=== PATIENT | male | born 1995 | race Caucasian/White ===

== ENCOUNTER 2016-11-03 15:36 | Emergency (ER) | payer SELFPAY ==
[~2016-11-03] VITALS: Ht 172.7 cm; Wt 59.0 kg
[2016-11-03] MEDS ORDERED: LORazepam INJ 2 MG/ML (ATIVAN) VIAL ONE (15:41)
[2016-11-03] MEDS ORDERED: NS IV 1000 ML 1,000 ML ONE (15:41)
[2016-11-03] MEDS ORDERED: NS IV 1000 ML 1,000 ML IV ONE ×2 (15:43→16:47)
[2016-11-03] MEDS ORDERED: LORazepam INJ 2 MG/ML (ATIVAN) VIAL IVP ONE (15:45)
[2016-11-03 15:57] LABS: BASOPHILS % (AUTO) 0 % (0-10); EOSINOPHILS # (AUTO) 0.1 10^3/uL (0.0-0.3); EOSINOPHILS % (AUTO) 1 % (0-10); LYMPHOCYTES # (AUTO) 1.5 X 10^3 (1.0-4.0); LYMPHOCYTES % (AUTO) 14 % (12-44); MEAN CORPUSCULAR HEMOGLOBIN 31 PG (25-34); MEAN CORPUSCULAR HGB CONC 37 G/DL (32-36); MEAN CORPUSCULAR VOLUME 85 FL (80-99); MEAN PLATELET VOLUME 11.4 FL (7.4-10.4); MONOCYTES # (AUTO) 0.9 X 10^3 (0.0-1.0); MONOCYTES % (AUTO) 8 % (0-12); NEUTROPHILS # (AUTO) 8.6 X 10^3 (1.8-7.8); NEUTROPHILS % (AUTO) 78 % (42-75); PLATELET COUNT 212 10^3/uL (130-400); RED BLOOD COUNT 5.31 10^6/uL (4.35-5.85); RED CELL DISTRIBUTION WIDTH 12.4 % (10.0-14.5)
[2016-11-03] MEDS ORDERED: ONDANSETRON 4 MG/2 ML (SDV) Z0FRAN IVP ONE (16:00)
--- NOTE | 2016-11-03 16:05 | Diagnostic Imaging Report ---
INDICATION: Headache, fever. EXAMINATION: Portable erect AP chest at 3:49 p.m. COMPARISON: There are no prior studies available for comparison. FINDINGS: The heart size is within normal limits. The lungs are clear. There is no evidence for pneumonia or for a pleural effusion. There is no sign of a pneumothorax. The mediastinum is not widened. The osseous structures are intact. IMPRESSION: There is no evidence for an acute cardiopulmonary abnormality. Dictated by: Dictated on workstation # [id number]
[2016-11-03 16:15] LABS: ALANINE AMINOTRANSFERASE 20 U/L (0-55); ALBUMIN 4.6 G/DL (3.2-4.5); ANION GAP 11 MMOL/L (5-14); ASPARTATE AMINO TRANSFERASE 17 U/L (5-34); BILIRUBIN,TOTAL 0.9 MG/DL (0.1-1.0); BLOOD UREA NITROGEN 11 MG/DL (7-18); BUN/CREATININE RATIO 13; CALCIUM 9.6 MG/DL (8.5-10.1); CARBON DIOXIDE 22 MMOL/L (21-32); CHLORIDE 107 MMOL/L (98-107); CREATININE SERUM 0.86 MG/DL (0.60-1.30); GFR ESTIMATED > 60; GLUCOSE 115 MG/DL (70-105); MAGNESIUM 1.8 MG/DL (1.8-2.4); POTASSIUM 3.9 MMOL/L (3.6-5.0); SODIUM 140 MMOL/L (135-145); TOTAL PROTEIN 6.7 G/DL (6.4-8.2)
[2016-11-03 16:20] LABS: ALCOHOL < 10 MG/DL (<10)
--- NOTE | 2016-11-03 16:23 | ED General ---
General Chief Complaint: Cough/Cold/Flu Symptoms Stated Complaint: HEADACHE/N/V/FEVER Nursing Triage Note: to ED 5 by [facility] with reports of "not feeling well." Patient will not verbalize any major complaints, but reports that he has abdominal pain, nausea, congestion, cough, headache, and other general illness for the past hour. 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 Nursing Sepsis Screen: No Definite Risk Source of Information: Patient, EMS Exam Limitations: No Limitations History of Present Illness Time Seen by Provider: 15:38 Initial Comments This 21-year-old man presents to the emergency room via EMS after having headache, nausea and vomiting, and erratic behavior at home. EMS reported he was stumbling around the home. EMS gave him Zofran 4 mg by IV. He reports residual nausea. He also has some generalized abdominal pain. He reports fever at home but is afebrile for us on assessment. He denies any drug or alcohol use. Patient appears to be hyperventilating and is having some contractures of his hands as a result. Allergies and Home Medications Allergies Coded Allergies: No Known Drug Allergies (Unverified , 11/03/16) Home Medications No Active Prescriptions or Reported Meds Constitutional: see HPI EENTM: no symptoms reported Respiratory: see HPI Cardiovascular: no symptoms reported Gastrointestinal: see HPI Genitourinary: no symptoms reported Musculoskeletal: no symptoms reported Skin: no symptoms reported Psychiatric/Neurological: See HPI Past Nbcuwfl-Qnfquj-Tdfexe Hx Patient Social History Alcohol Use: Denies Use Recreational Drug Use: Yes Drug of Choice: Marijuana Smoking Status: Current Everyday Smoker 2nd Hand Smoke Exposure: Yes Recent Foreign Travel: No Contact w/Someone Who Travel: No Recent Infectious Disease Expo: No Recent Hopitalizations: No Immunizations Up To Date Tetanus Booster (TDap): Unknown Seasonal Allergies Seasonal Allergies: Yes Surgeries HX Surgeries: No Respiratory Hx Respiratory Disorders: No Cardiovascular Hx Cardiac Disorders: No Neurological Hx Neurological Disorders: Yes Neurological Disorders: Seizure Disorder Genitourinary Hx Genitourinary Disorders: No Gastrointestinal Hx Gastrointestinal Disorders: No Musculoskeletal Hx Musculoskeletal Disorders: No Endocrine Hx Endocrine Disorders: No HEENT HX ENT Disorders: No Cancer Hx Cancer: No Psychosocial Hx Psychiatric Problems: No Physical Exam Vital Signs Vital Sign - Last 12Hours 11/03/16 15:40 Temp 98.5 Pulse 63 Resp 26 B/P 107/62 Pulse Ox 98 O2 Delivery Room Air Capillary Refill : Less Than 3 Seconds General Appearance: WD/WN Mild Distress Other (hyperventilating) HEENT: PERRL/EOMI Normal ENT Inspection Pharynx Normal Neck: Normal Inspection Respiratory: Lungs Clear Normal Breath Sounds No Accessory Muscle Use No Respiratory Distress Cardiovascular: Regular Rate, Rhythm No Edema No Murmur Gastrointestinal: Normal Bowel Sounds Soft Tenderness (generalized tenderness to palpation, mild) Extremity: Normal Inspection No Pedal Edema Other (contractures of the fingers with hyperventilation) Neurologic/Psychiatric: Alert Oriented x3 No Motor/Sensory Deficits Normal 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30 MG/DL Eosinophils # (Auto) 0.1 0.0-0.3 10^3/uL Eosinophils (%) (Auto) 1 0-10 % Estimat Glomerular Filtration Rate > 60 Glucose Level 115 H 70-105 MG/DL Hematocrit 45 40-54 % Hemoglobin 16.6 13.3-17.7 G/DL Lipase 22 8-78 U/L Lymphocytes # (Auto) 1.5 1.0-4.0 X 10^3 Lymphocytes (%) (Auto) 14 12-44 % Magnesium Level 1.8 1.8-2.4 MG/DL Mean Corpuscular Hemoglobin 31 25-34 PG Mean Corpuscular Hemoglobin Concent 37 H 32-36 G/DL Mean Corpuscular Volume 85 80-99 FL Mean Platelet Volume 11.4 H 7.4-10.4 FL Monocytes # (Auto) 0.9 0.0-1.0 X 10^3 Monocytes (%) (Auto) 8 0-12 % Neutrophils # (Auto) 8.6 H 1.8-7.8 X 10^3 Neutrophils (%) (Auto) 78 H 42-75 % Platelet Count 212 130-400 10^3/uL Potassium Level 3.9 3.6-5.0 MMOL/L Red Blood Count 5.31 4.35-5.85 10^6/uL Red Cell Distribution Width 12.4 10.0-14.5 % Serum Alcohol < 10 <10 MG/DL Sodium Level 140 135-145 MMOL/L TSH Mathews Testing 0.72 0.35-4.94 UIU/ML Total Bilirubin 0.9 0.1-1.0 MG/DL Total Protein 6.7 6.4-8.2 G/DL White Blood Count 11.0 4.3-11.0 10^3/uL Ur Tricyclic Antidepressants Screen NEGATIVE NEGATIVE Urine Amorphous Sediment FEW RACHAEL PHOSPHATE H /LPF Urine Amphetamines Screen NEGATIVE NEGATIVE Urine Bacteria NONE /HPF Urine Barbiturates Screen NEGATIVE NEGATIVE Urine Benzodiazepines Screen POSITIVE H NEGATIVE Urine Bilirubin NEGATIVE NEGATIVE Urine Cannabinoids Screen POSITIVE H NEGATIVE Urine Casts NONE /LPF Urine Clarity SLIGHTLY CLOUDY Urine Cocaine Screen NEGATIVE NEGATIVE Urine Color YELLOW Urine Crystals PRESENT H /LPF Urine Culture Indicated NO Urine Glucose (UA) NEGATIVE NEGATIVE Urine Ketones 3+ H NEGATIVE Urine Leukocyte Esterase 1+ H NEGATIVE Urine Methadone Screen NEGATIVE NEGATIVE Urine Methamphetamines Screen NEGATIVE NEGATIVE Urine Mucus SMALL H /LPF Urine Nitrite NEGATIVE NEGATIVE Urine Opiates Screen NEGATIVE NEGATIVE Urine Oxycodone Screen NEGATIVE NEGATIVE Urine Phencyclidine Screen NEGATIVE NEGATIVE Urine Propoxyphene Screen NEGATIVE NEGATIVE Urine Protein 2+ H NEGATIVE Urine RBC NONE /HPF Urine RBC (Auto) NEGATIVE NEGATIVE Urine Specific [place] 1.015 L 1.016-1.022 Urine Urobilinogen 1 NORMAL MG/DL Urine WBC 0-2 /HPF Urine pH 8 5-9 Micro Results Microbiology 11/03/16 Influenza Types A,B Antigen (MALENA) - Final, Complete My Orders Orders-GAYLE DICKINSON MD Ns Iv 1000 Ml (Sodium Chloride 0.9%) (11/03/16 15:41) Lorazepam Injection (Ativan Injection) (11/03/16 15:41) Lorazepam Injection (Ativan Injection) (11/03/16 15:45) Saline Lock/Iv-Start (11/03/16 15:43) Ns Iv 1000 Ml (Sodium Chloride 0.9%) (11/03/16 15:43) Alcohol (11/03/16 15:45) Cbc With Automated Diff (11/03/16 15:45) Comprehensive Metabolic Panel (11/03/16 15:45) Drug Screen Stat (Urine) (11/03/16 15:45) Magnesium (11/03/16 15:45) Thyroid Analyzer (11/03/16 15:45) Ua Culture If Indicated (11/03/16 15:45) Chest 1 View, Ap/Pa Only (11/03/16 15:45) Ondansetron Injection (Zofran Injectio (11/03/16 16:00) Influenza A And B Antigens (11/03/16 16:23) Lipase (11/03/16 16:46) Promethazine Injection (Phenergan Injec (11/03/16 16:45) Promethazine Injection (Phenergan Injec (11/03/16 17:00) Saline Lock/Iv-Start (11/03/16 16:47) Ns Iv 1000 Ml (Sodium Chloride 0.9%) (11/03/16 16:47) Rx-Ondansetron Po (Rx-Zofran Po) (11/03/16 18:31) Medications Given in ED Current Medications Medications Dose Ordered Sig/Minh Route Start Time Stop Time Status Last Admin Dose Admin Lorazepam 0.5 mg 0.5 mg ONCE ONCE IVP 11/03/16 15:45 11/03/16 15:46 DC 11/03/16 15:44 0.5 MG Ondansetron HCl 4 mg ONCE ONCE IVP 11/03/16 16:00 11/03/16 16:01 DC 11/03/16 15:57 4 MG Promethazine HCl 12.5 mg 12.5 mg ONCE ONCE IVP 11/03/16 17:00 11/03/16 17:01 DC 11/03/16 16:52 12.5 MG Sodium Chloride 1,000 ml @ 0 mls/hr Q0M ONCE IV 11/03/16 15:43 11/03/16 15:45 DC 11/03/16 15:44 0 MLS/HR Sodium Chloride 1,000 ml @ 0 mls/hr Q0M ONCE IV 11/03/16 16:47 11/03/16 16:48 DC 11/03/16 16:51 0 MLS/HR Vital Signs/I&O Vital Sign - Last 12Hours 11/03/16 11/03/16 15:40 15:40 Temp 98.5 Pulse 63 Resp 26 B/P 107/62 Pulse Ox 98 O2 Delivery Room Air Room Air Blood Pressure Mean: 77 Progress Note : Progress Note Patient was given a liter of IV fluids along with an additional 4 mg of Zofran. He was given Ativan 0.5 mg because of the hyperventilation. He still had residual nausea and reportedly could not urinate. A second liter of IV fluids was ordered along with Phenergan 12.5 mg. This resolved his nausea and vomiting but he still reported he could not urinate. A straight catheter was used to drain his bladder and we retrieved 700 mL of urine. Urine drug screen tested positive for marijuana. He admits to using marijuana 2 days ago. Patient's response to staff and stimuli was dependent on his mood. Patient was ultimately dismissed home with a take-home packet of Zofran. Diagnostic Imaging Diagonstic Imaging: Xray Plain Films/CT/US/NM/MRI: chest Comments Chest x-ray viewed by me and report reviewed. See report below: NAME: PAL TILLEY [facility] REC#: [id number] PT STATUS: REG ER : 1995 PHYSICIAN: GAYLE DICKINSON MD ADMIT DATE: 11/03/16/ER Draft Date of Exam:11/03/16 CHEST 1 VIEW, AP/PA ONLY INDICATION: Headache, fever. EXAMINATION: Portable erect AP chest at 3:49 p.m. COMPARISON: There are no prior studies available for comparison. FINDINGS: The heart size is within normal limits. The lungs are clear. There is no evidence for pneumonia or for a pleural effusion. There is no sign of a pneumothorax. The mediastinum is not widened. The osseous structures are intact. IMPRESSION: There is no evidence for an acute cardiopulmonary abnormality. Dictated on workstation # [id number] Dict: 11/03/16 1559 Trans: 11/03/16 1604 [facility] [id number] Interpreted by: AYE WILLIS MD Departure Impression Impression: Primary Impression: Nausea and vomiting Qualified Code: R11.2 - Nausea with vomiting, unspecified Additional Impressions: Urinary retention Generalized abdominal pain Marijuana abuse Hyperventilation Disposition: 01 HOME, SELF-CARE Condition: Improved Departure-Patient Inst. Decision time for Depature: 18:20 Referrals: NO,LOCAL PHYSICIAN (PCP/Family) Primary Care Physician Patient Instructions: Acute Abdomen (Belly Pain), Nausea and Vomiting, Adult Add. Discharge Instructions: Clear liquid diet only until nausea resolves. Then gradually advance your diet with small quantities of bland food as tolerated. Use the Zofran (ondansetron) provided in the ER. Dissolve Zofran under the tongue every 4 hours as needed for nausea. Avoid use of marijuana or marijuana exposure in the future as it can be a major trigger for nausea, vomiting, and abdominal pain. Return to care if symptoms worsen. All discharge instructions reviewed with patient and/or family. Voiced understanding. Scripts No Active Prescriptions or Reported Meds GAYLE DICKINSON MD Nov 03, 2016 16:23
[2016-11-03] MEDS ORDERED: PROMETHAZINE INJ 25 MG/ML (PHENERGAN) AMP ONE (16:45)
[2016-11-03] MEDS ORDERED: PROMETHAZINE INJ 25 MG/ML (PHENERGAN) AMP IVP ONE (17:00)
[2016-11-03 18:06] LABS: BILIRUBIN,URINE NEGATIVE (NEGATIVE); KETONES,URINE 3+ (NEGATIVE); LEUKOCYTE ESTERASE ,URINE 1+ (NEGATIVE); NITRITE,URINE NEGATIVE (NEGATIVE); PH,URINE 8 (5-9); PROTEIN,URINE 2+ (NEGATIVE); UROBILINOGEN,URINE 1 MG/DL (NORMAL)
[2016-11-03 18:12] LABS: WBC,URINE 0-2 /HPF
[2016-11-03] MEDS ORDERED: RX-ONDANSETRON 4 MG ODT (ZOFRAN) PPK #4 SL STA (18:31)
[2016-11-03 18:54] VITALS: BP 112/60
== END 2016-11-03 18:54 | disposition home or self-care (01) ==
LOC: ER 15:38
DX: R11.2 Nausea with vomiting, unspecified (principal); R33.9 Retention of urine, unspecified; R10.84 Generalized abdominal pain; F12.10 Cannabis abuse, uncomplicated; R06.4 Hyperventilation; F17.210 Nicotine dependence, cigarettes, uncomplicated
CPT/HCPCS: 36415; 51701; 71010; 80053; 80306; 80320; 81000; 83690; 83735; 84443; 85025; 87804; 96365; 96375

== ENCOUNTER 2017-05-28 20:30 | Emergency (ER) | payer SELFPAY ==
[~2017-05-28] VITALS: Ht 172.7 cm; Wt 59.0 kg
[2017-05-28] MEDS ORDERED: KETOROLAC 30 MG/ML VIAL IVP ONE (20:45)
--- NOTE | 2017-05-28 20:47 | ED Chest Pain ---
General Stated Complaint: RT SIDED CHEST PAIN,COUGH,SOA Source: patient Exam Limitations: no limitations History of Present Illness Time seen by provider: 20:46 Initial Comments 1 home to ER with a cough that is been present for one week. This is nonproductive. No fevers or chills. He has a sharp right-sided chest pain just below his nipple. He is also short of breath. This pain has been present all throughout the day today and it was present when he awakened at 8 a.m. this morning. He is tall and thin. 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 Allergies and Home Medications Allergies Coded Allergies: Penicillins (Verified Allergy, Unknown, 05/28/17) Home Medications No Active Prescriptions or Reported Meds Review of Systems Constitutional: see HPI EENTM: No Symptoms Reported Respiratory: See HPI, Cough, Shortness of Air Cardiovascular: See HPI, Chest Pain Gastrointestinal: No Symptoms Reported Genitourinary: No Symptoms Reported Musculoskeletal: no symptoms reported Skin: no symptoms reported Psychiatric/Neurological: No Symptoms Reported Endocrine: No Symptoms Reported Hematologic/Lymphatic: No Symptoms Reported Past Ipqkcxk-Vvxfnb-Hrrljs Hx Patient Social History Drug of Choice: Marijuana 2nd Hand Smoke Exposure: Yes Recent Foreign Travel: No Contact w/Someone Who Travel: No Recent Hopitalizations: No Immunizations Up To Date Tetanus Booster (TDap): Unknown Seasonal Allergies Seasonal Allergies: Yes Neurological Neurological Disorders: Seizure Disorder Physical Exam Vital Signs Capillary Refill : General Appearance: No Apparent Distress, WD/WN HEENT: PERRL/EOMI, TMs Normal Neck: Full Range of Motion, Normal Inspection Respiratory: Normal Breath Sounds, No Accessory Muscle Use, No Respiratory Distress Cardiovascular: Regular Rate, Rhythm, Normal Peripheral Pulses Gastrointestinal: Normal Bowel Sounds, Non Tender, Soft Extremity: Normal Capillary Refill, Normal Inspection Neurologic/Psychiatric: Alert, Oriented x3, No Motor/Sensory Deficits Skin: Normal Color, Warm/Dry Progress/Results/Core Measures Results/Orders Lab Results Laboratory Tests Test 05/28/17 20:45 Range/Units White Blood Count 9.7 4.3-11.0 10^3/uL Red Blood Count 4.83 4.35-5.85 10^6/uL Hemoglobin 15.0 13.3-17.7 G/DL Hematocrit 42 40-54 % Mean Corpuscular Volume 86 80-99 FL Mean Corpuscular Hemoglobin 31 25-34 PG Mean Corpuscular Hemoglobin Concent 36 32-36 G/DL Red Cell Distribution Width 12.6 10.0-14.5 % Platelet Count 203 130-400 10^3/uL Mean Platelet Volume 10.7 H 7.4-10.4 FL Neutrophils (%) (Auto) 71 42-75 % Lymphocytes (%) (Auto) 15 12-44 % Monocytes (%) (Auto) 14 H 0-12 % Eosinophils (%) (Auto) 1 0-10 % Basophils (%) (Auto) 0 0-10 % Neutrophils # (Auto) 6.9 1.8-7.8 X 10^3 Lymphocytes # (Auto) 1.5 1.0-4.0 X 10^3 Monocytes # (Auto) 1.3 H 0.0-1.0 X 10^3 Eosinophils # (Auto) 0.1 0.0-0.3 10^3/uL Basophils # (Auto) 0.0 0.0-0.1 10^3/uL My Orders Orders - CARLOTTA ORO APRN Chest Pa/Lat (2 View) (05/28/17 20:38) Cbc With Automated Diff (05/28/17 20:45) Saline Lock/Iv-Start (05/28/17 20:45) Ketorolac Injection (Toradol Injection) (05/28/17 20:45) Prednisone Tablet (Deltasone Tablet) (05/28/17 21:45) Azithromycin Tablet (Zithromax Tablet) (05/28/17 21:45) Medications Given in ED Current Medications Medications Dose Ordered Sig/Minh Route Start Time Stop Time Status Last Admin Dose Admin Ketorolac Tromethamine 30 mg ONCE ONCE IVP 05/28/17 20:45 05/28/17 20:47 DC 05/28/17 20:53 30 MG Departure Impression Impression: Primary Impression: Pleuritic chest pain Additional Impression: Bronchitis Disposition: 01 HOME, SELF-CARE Condition: Stable Departure-Patient Inst. Decision time for Depature: 21:47 Referrals: NO,LOCAL PHYSICIAN (PCP/Family) Primary Care Physician Patient Instructions: Acute Bronchitis, Adult (DC), Pleuritic Chest Pain (DC) Add. Discharge Instructions: 1. Use Tylenol and Motrin as needed for pain 2. Return to ER for any concerns 3. Antibiotics and steroids as directed 4. Follow-up with her doctor later this week Scripts Azithromycin (Azithromycin) 250 Mg Tablet 250 MG PO DAILY, #4 TAB Prov: CARLOTTA ORO APRN 05/28/17 Prednisone (Prednisone) 20 Mg Tab 40 MG PO DAILY, #6 TAB Prov: CARLOTTA ORO APRN 05/28/17 Work/School Note: Work Release Form Date Seen in the Emergency Department: May 28, 2017 Return to Work: May 30, 2017 CARLOTTA ORO APRN May 28, 2017 20:47
[2017-05-28 20:57] LABS: BASOPHILS % (AUTO) 0 % (0-10); EOSINOPHILS # (AUTO) 0.1 10^3/uL (0.0-0.3); EOSINOPHILS % (AUTO) 1 % (0-10); LYMPHOCYTES # (AUTO) 1.5 X 10^3 (1.0-4.0); LYMPHOCYTES % (AUTO) 15 % (12-44); MEAN CORPUSCULAR HEMOGLOBIN 31 PG (25-34); MEAN CORPUSCULAR HGB CONC 36 G/DL (32-36); MEAN CORPUSCULAR VOLUME 86 FL (80-99); MEAN PLATELET VOLUME 10.7 FL (7.4-10.4); MONOCYTES # (AUTO) 1.3 X 10^3 (0.0-1.0); MONOCYTES % (AUTO) 14 % (0-12); NEUTROPHILS # (AUTO) 6.9 X 10^3 (1.8-7.8); NEUTROPHILS % (AUTO) 71 % (42-75); PLATELET COUNT 203 10^3/uL (130-400); RED BLOOD COUNT 4.83 10^6/uL (4.35-5.85); RED CELL DISTRIBUTION WIDTH 12.6 % (10.0-14.5); WHITE BLOOD COUNT 9.7 10^3/uL (4.3-11.0)
--- NOTE | 2017-05-28 21:17 | Diagnostic Imaging Report ---
INDICATION: Upper chest pain. COMPARISON: 11/03/16. FINDINGS: Frontal and lateral views of the chest demonstrate clear lungs bilaterally. The heart size is normal. There is no pneumothorax. Osseous structures normal. IMPRESSION: Negative chest. Dictated by: Dictated on workstation # [id number]
[2017-05-28] MEDS ORDERED: AZITHROMYCIN 250 MG TAB (ZITHROMAX) PO SCH (21:45)
[2017-05-28] MEDS ORDERED: predniSONE 20 MG TAB PO ONE (21:45)
[2017-05-28] MEDS ORDERED: PRD20T PO (21:48)
[2017-05-28] MEDS ORDERED: AZIT250T5 PO (21:48)
[2017-05-28 21:51] VITALS: BP 106/69
== END 2017-05-28 21:53 | disposition home or self-care (01) ==
LOC: EDUNIT# 20:30 → ER 20:33
DX: Z77.22 Contact with and (suspected) exposure to environmental tobacco smoke (acute) (chronic); G40.909 Epilepsy, unspecified, not intractable, without status epilepticus; J40 Bronchitis, not specified as acute or chronic; R07.81 Pleurodynia
CPT/HCPCS: 36415; 71020; 85025

== ENCOUNTER 2018-01-27 12:47 | Emergency (ER) | payer SELFPAY ==
[~2018-01-27] VITALS: Ht 190.5 cm; Wt 72.6 kg
[~2018-01-27 12:47] MED LIST: AZIT250T12 PO; PRD20T PO
--- NOTE | 2018-01-27 13:24 | ED General ---
General Chief Complaint: Laceration Stated Complaint: RIGHT INDEX FINGER LAC Nursing Triage Note: PT WAS USING BOX KNIFE ON CARPET. KNIFE SLIPPED ET CUT R-DISTAL PHALANX @ 3/4 INCH. DRIED BLOOD NOTED TO FINGER ET PALM. CUT STILL BLEEDING BUT SMALL AMOUNT. CLEANED WOUND W/SALINE ET THEN CLEANED W/BACTERIAL SOAP. Nursing Sepsis Screen: No Definite Risk Source of Information: Patient Exam Limitations: No Limitations History of Present Illness Date Seen by Provider: January 27, 2018 Time Seen by Provider: 13:05 Initial Comments 22-year-old male patient presents to the emergency department complains of a laceration to the right hand. Injury occurred while using a box knife to cut carpet. Location Injury Occurred: home Timing/Duration: 1/2 Hour Severity: Mild Modifying Factors: improves with Other (bleeding improved with compression.) Allergies and Home Medications Allergies Coded Allergies: Penicillins (Verified Allergy, Unknown, 05/28/17) Home Medications Azithromycin 250 Mg Tablet, 250 MG PO DAILY Prescribed by: CARLOTTA ORO on 05/28/172147 Prednisone 20 Mg Tab, 40 MG PO DAILY Prescribed by: CARLOTTA ORO on 05/28/172147 Patient Home Medication List Home Medication List Reviewed: Yes Review of Systems Constitutional: no symptoms reported Musculoskeletal: see HPI Skin: see HPI Psychiatric/Neurological: Denies Numbness, Denies Paresthesia, Denies Tingling , Denies Weakness All Other Systems Reviewed Negative Unless Noted: Yes (Negative excepted noted.) Past Jjcxhff-Kahbvr-Pmyymo Hx Patient Social History Alcohol Use: Denies Use Recreational Drug Use: Yes Drug of Choice: Marijuana Type Used: Cigarettes 2nd Hand Smoke Exposure: Yes Recent Foreign Travel: No Contact w/Someone Who Travel: No Recent Infectious Disease Expo: No Recent Hopitalizations: No Physical Abuse: No Sexual Abuse: No Immunizations Up To Date Tetanus Booster (TDap): Less than 5yrs Seasonal Allergies Seasonal Allergies: Yes Past Medical History Surgeries: No Respiratory: No Cardiac: No Neurological: Yes Seizure Disorder Genitourinary: No Gastrointestinal: No Musculoskeletal: No Endocrine: No HEENT: No Cancer: No Psychosocial: No Nursing Suicide Risk Score: 0 Integumentary: No Blood Disorders: No Family Medical History Reviewed Nursing Family Hx No Pertinent Family Hx Physical Exam Vital Signs Vital Signs - First Documented 01/27/18 12:55 Temp 97.9 Pulse 104 Resp 18 B/P (MAP) 116/79 (91) Pulse Ox 95 O2 Delivery Room Air Capillary Refill : Less Than 3 Seconds General Appearance: No Apparent Distress, WD/WN Cardiovascular: Normal Peripheral Pulses Extremity: Normal Capillary Refill, Normal Range of Motion, Other (3 cm superficial laceration to the lateral right had (just proximal to the 2nd MCP joint). Mild soft tissue tenderness noted.) Neurologic/Psychiatric: Alert, Oriented x3, No Motor/Sensory Deficits, Normal Mood/Affect Skin: Normal Color, Warm/Dry Procedures/Interventions Wound Location: Upper Extremities (right hand) Wound Length (cm): 3 Wound's Depth, Shape: superficial, linear Wound Explored: clean Betadine Prep?: Yes (scrubbed vigorously with chlorhexidine and sterile saline. ) Anesthesia: 1% Lidocaine Volume Anesthetic (ccs): 2 Suture: Ethlion Suture Size: 4-0 Number of Sutures: 3 Layer Closure?: 1 Sterile Dressing Applied?: Yes Progress blood loss minimal. patient tolerated the procedure well. Progress/Results/Core Measures Suspected Sepsis Recent Fever Within 48 Hours: No Infection Criteria Present: None New/Unexplained Altered Menta: No Sepsis Screen: No Definite Risk SIRS Temperature:97.9 Pulse: 104 Respiratory Rate: 18 Blood Pressure 116 /79 Mean: 91 Results/Orders My Orders Orders - MYCHAL DANIELLE Lidocaine 1% Inj 20 Ml (Xylocaine 1% Inj (01/27/18 13:30) Medications Given in ED Current Medications Medications Dose Ordered Sig/Minh Route Start Time Stop Time Status Last Admin Dose Admin Lidocaine HCl 20 ml ONCE ONCE INJ 01/27/18 13:30 01/27/18 13:31 DC 01/27/18 13:29 20 ML Vital Signs/I&O 01/27/18 12:55 Temp 97.9 Pulse 104 Resp 18 B/P (MAP) 116/79 (91) Pulse Ox 95 O2 Delivery Room Air Capillary Refill : Less Than 3 Seconds Blood Pressure Mean: 91 Departure Impression Primary Impression: Laceration of right hand Qualified Codes: S61.411A - Laceration without foreign body of right hand, initial encounter Disposition: HOME, SELF-CARE Condition: Improved Departure-Patient Inst. Decision time for Depature: 13:23 Referrals: NO,LOCAL PHYSICIAN (PCP/Family) Primary Care Physician Patient Instructions: Laceration Repair With Stitches (DC) Add. Discharge Instructions: All discharge instructions reviewed with patient and/or family. Voiced understanding. Tylenol extra strength [id number] as directed for pain. Ibuprofen 800 mg by mouth every 8 hours as needed for pain. Elevate the right hand on pillows if needed for swelling. Ice pack for 20 and intervals as needed. Tomorrow morning you may remove the bandage, shower with antibacterial soap, pat dry, apply triple antibiotic ointment and cover with a Band-Aid. Return to the emergency department in 7 days for suture removal. Follow-up with your family practitioner for recheck as an outpatient if needed. Return to the emergency department for worsened pain, redness, fever, drainage, or any other concerns. Images Extremities-Upper 1 - Laceration MYCHAL DANIELLE January 27, 2018 13:24
[2018-01-27] MEDS ORDERED: LIDOCAINE 1% INJ 20 ML 20 ML VIAL INJ ONE (13:30)
[2018-01-27 13:50] VITALS: BP 116/79
== END 2018-01-27 13:50 | disposition home or self-care (01) ==
LOC: EDUNIT# 12:47 → ER 12:48
DX: S61.210A Laceration without foreign body of right index finger without damage to nail, initial encounter (principal); G40.909 Epilepsy, unspecified, not intractable, without status epilepticus; F12.10 Cannabis abuse, uncomplicated; Z88.0 Allergy status to penicillin; Z79.52 Long term (current) use of systemic steroids; W27.8XXA Contact with other nonpowered hand tool, initial encounter; Y92.009 Unspecified place in unspecified non-institutional (private) residence as the place of occurrence of the external cause
CPT/HCPCS: 12002

== ENCOUNTER 2019-05-02 20:13 | Emergency (ER) | payer SELFPAY ==
[~2019-05-02] VITALS: Ht 190.5 cm; Wt 81.6 kg
--- NOTE | 2019-05-02 20:27 | ED Lower Extremity ---
General Stated Complaint: LT KNEE PAIN Source: patient Exam Limitations: no limitations History of Present Illness Date Seen by Provider: May 02, 2019 Time Seen by Provider: 20:23 Initial Comments left knee pain since falling onto a flexed left knee on friday04/28/19. no fevers or chills. no other injury. Onset: just prior to arrival Severity: moderate Pain/Injury Location: right knee Method of Injury: fell Modifying Factors: Worse With Movement Allergies and Home Medications Allergies Coded Allergies: Penicillins (Verified Allergy, Unknown, 05/28/17) Home Medications Azithromycin 250 Mg Tablet, 250 MG PO DAILY Prescribed by: CARLOTTA ORO on 05/28/172147 Prednisone 20 Mg Tab, 40 MG PO DAILY Prescribed by: CARLOTTA ORO on 05/28/172147 Patient Home Medication List Home Medication List Reviewed: Yes Review of Systems Constitutional: see HPI EENTM: see HPI Respiratory: no symptoms reported Cardiovascular: no symptoms reported Genitourinary: no symptoms reported Musculoskeletal: see HPI Skin: no symptoms reported Psychiatric/Neurological: No Symptoms Reported Past Ypdeche-Qxaqia-Iglpnd Hx Patient Social History Drug of Choice: Marijuana Type Used: Cigarettes 2nd Hand Smoke Exposure: Yes Recent Foreign Travel: No Contact w/Someone Who Travel: No Recent Hopitalizations: No Immunizations Up To Date Tetanus Booster (TDap): Less than 5yrs Seasonal Allergies Seasonal Allergies: Yes Past Medical History Surgeries: No Respiratory: No Cardiac: No Neurological: Yes Seizure Disorder Genitourinary: No Gastrointestinal: No Musculoskeletal: No Endocrine: No HEENT: No Cancer: No Psychosocial: No Integumentary: No Blood Disorders: No Family Medical History No Pertinent Family Hx Physical Exam Vital Signs Capillary Refill : Height, Weight, BMI Height: 6'3.00" Weight: 160lbs. oz. 72.073635mh; BMI Method:Stated General Appearance: WD/WN, no apparent distress HEENT: PERRL/EOMI, normal ENT inspection Respiratory: no respiratory distress, no accessory muscle use Hips: bilateral hip non-tender, bilateral hip normal inspection, bilateral hip normal range of motion Legs: bilateral leg non-tender, bilateral leg normal inspection, bilateral leg normal range of motion Knees: right knee pain, right knee soft tissue tenderness, right knee other (no erythema, eccymosis, or effusion that is palpable. Thin pt and effusion would be easy to see. ambulatory to room fast track 2 without using crutches and without antalgic gait. Posterior tibial pulses intact, normal sensation distally. lachmans test negative, no knee joint instability. patella is midline. ) Ankles: bilateral ankle non-tender, bilateral ankle normal inspection, bilateral ankle normal range of motion Feet: bilateral foot non-tender, bilateral foot normal inspection, bilateral foot normal range of motion Neurologic/Psychiatric: alert, normal mood/affect, oriented x 3 Skin: normal color, warm/dry Procedures/Interventions Suture Size: 4-0 Departure Impression Primary Impression: Internal derangement of left knee Disposition: 01 HOME, SELF-CARE Condition: Stable Departure-Patient Inst. Decision time for Depature: 20:26 Referrals: NO,LOCAL PHYSICIAN (PCP/Family) Primary Care Physician Patient Instructions: Internal Derangement of the Knee Add. Discharge Instructions: 1. Tylenol and ibuprofen for pain control 2. Call your doctor tomorrow to schedule an MRI of the knee CARLOTTA ORO APRN May 02, 2019 20:27
--- NOTE | 2019-05-02 20:50 | Diagnostic Imaging Report ---
EXAM: Knee, left, 3 views. INDICATION: Fall. Left knee pain. COMPARISON: None. FINDINGS: No fracture or malalignment. No suspicious osteoblastic or lytic lesions. Soft tissue shadows are negative. IMPRESSION: Negative left knee radiographs. Dictated by: Dictated on workstation # [id number]
[2019-05-02 21:02] VITALS: BP 112/72
== END 2019-05-02 21:03 | disposition home or self-care (01) ==
LOC: EDUNIT# 20:13 → ER 20:15
DX: M23.92 Unspecified internal derangement of left knee (principal); G40.909 Epilepsy, unspecified, not intractable, without status epilepticus; Z77.22 Contact with and (suspected) exposure to environmental tobacco smoke (acute) (chronic); Z79.52 Long term (current) use of systemic steroids; Z88.0 Allergy status to penicillin; W19.XXXA Unspecified fall, initial encounter
CPT/HCPCS: 73562

== ENCOUNTER 2020-01-15 16:43 | Emergency (ER) | payer OTHER ==
[~2020-01-15] VITALS: Ht 177 cm; Wt 80.0 kg
--- OUTSIDE RECORDS SUMMARY | 2020-01-15 16:47 | XMS REPORT ---
Author Author Pal APARICIO Organization [facility] Address [address] [place] [address] Care Team Providers Care Furniture Maker Name Role Phone PAL APARICIO Unavailable PROBLEMS Type Condition ICD9-CM Code VRI93-FO Code Onset Dates Condition S tatus SNOMED Code Problem Chronic gingivitis, plaque induced K05.10 Active 53270933 Problem Mood disorder F39 Active 945714 05 ALLERGIES No Information ENCOUNTERS Encounter Location Date Diagnosis [facility] [address] [facility] [id number] [place] [address] Apr, Mood disorder F39 [facility] [address] [place], [place] [id number] 57 Mar, Blister (nonthermal) of oral cavity, initial encounter S00.522A ; Chronic gingivitis, plaque induced K05.10 and Mood disorder F39 IMMUNIZATIONS No Known Immunizations SOCIAL HISTORY Never Assessed REASON FOR VISIT alf rx PLAN OF CARE VITAL SIGNS MEDICATIONS Medication Instructions Dosage Frequency Start Date End Date Duration S tatus Paroxetine HCl 30 MG Orally Once a day 1 tablet in the morning 24h Mar, 30 day(s) Active RESULTS No Results PROCEDURES No Known procedures INSTRUCTIONS MEDICATIONS ADMINISTERED No Known Medications
--- OUTSIDE RECORDS SUMMARY | 2020-01-15 16:47 | XMS REPORT ---
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 Name Role Phone PAL APARICIO Unavailable PROBLEMS Type Condition ICD9-CM Code HHR99-TK Code Onset Dates Condition S tatus SNOMED Code Problem Chronic gingivitis, plaque induced K05.10 Active 92288807 Problem Mood disorder F39 Active 346080 05 ALLERGIES No Known Allergies ENCOUNTERS Encounter Location Date Diagnosis [facility] [address] [facility] [id number] [address] [place] [phone] May, Tooth pain K08.89 [facility] [address] [facility] [id number] [address] [place] [id number] Apr, Mood disorder F39 [facility] [address] [place], [place] [id number] 31 Mar, 2018 Blister (nonthermal) of oral cavity, initial encounter S00.522A ; Chronic gingivitis, plaque induced K05.10 and Mood disorder F39 IMMUNIZATIONS No Known Immunizations SOCIAL HISTORY Never Assessed REASON FOR VISIT Group Home PLAN OF CARE VITAL SIGNS MEDICATIONS Medication Instructions Dosage Frequency Start Date End Date Duration S tatus Amoxicillin 500 mg Orally every 8 hrs 1 tablet 8h May, Jun, 10 day(s) Active RESULTS No Results PROCEDURES No Known procedures INSTRUCTIONS MEDICATIONS ADMINISTERED No Known Medications
--- OUTSIDE RECORDS SUMMARY | 2020-01-15 16:47 | XMS REPORT ---
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 [facility] [employer] [facility] [place] [employer] Address [address] [address] Care Team Providers Care Dental Service Technician Name Role Phone NO, LOCAL PHYSICIAN Unavailable Unavailable PAL APARICIO Unavailable PAL APARICIO Unavailable TEENA PAUL, GAYLE Aelman Unavailable Unavailable PAL APARICIO Unavailable NO, LOCAL PHYSICIAN PCP Unavailable CARLOTTA ORO APRN Unavailable Unavailable ALBA PAUL, AMY Pinon Unavailable Unavailable Unavailable Unavailable Unavailable Unavailable Allergies Normalized Allergy Reported Date of Reaction(s) Care Provider Facility Allergy Type classification allergen Allergy Onset DA (4 Unclassified No Known Drug 11-03-2016 - no information GAYLE Not Available sources.) Allergies TEENA (10428) Medications Medication Ingredient Drug Dose Dates Status Sig Sig Care Class(es) (Normalized) (Original) Provid er amoxicillin amoxicillin Penicillin- 500 mg 06-02-20 Active no Amoxicillin no 500 mg oral Translation class 18 - information 500 mg name tablet (1 s: [ Antibacteri 20 Orally every source.) Amoxicillin al 18 8 hrs 1 500 mg] tablet 8h May, Jun, 10 day(s) Active clindamycin clindamycin Lincosamide 300 mg 04-07-20 Active no Clindamycin no 300 mg oral Translation Antibacteri 18 - information HCl 30 0 MG name capsule (1 s: [ al 04-17-20 Orally 4 source.) Clindamycin 18 times a day HCl 300 MG] 1 capsule 6h Mar, Apr, 10 day(s) Active PARoxetine PARoxetine Serotonin 30 mg 04-07-20 Active no Pa roxetine no hydrochlori Translation Reuptake 18 information HCl 30 MG name de 30 mg s: [ Inhibitor Orally Once oral tablet Paroxetine a day 1 (2 HCl 30 MG, tablet in sources.) Paroxetine the morning Hydrochlori 24h Mar, de 20 MG 2017 30 Oral day(s) Tablet, Active Paroxetine HCl 20 MG] 20 mg 04-07-2018 Active no Paroxeti no name inform ne HCl ation 20 MG Orally Once a day 1 tablet in the morning 24h Mar, 30 day(s) Active Problems Active Problems Problem Normalized Date Last Normalized Normalized Provider Fa cility Classification Problem(s) Recorded Problem Problem Sta tus Duration Allergic Allergy status Episodic Active CARLOTTA ORO [facility] V ia reactions (2 to penicillin Angi sources.) Hospital - [place] ([address]) Superficial Blister Episodic Active PAL APARICIO [facility] [place] y injury; (nonthermal) [address] [place] [address] contusion ([address] [facility] sources.) cavity, [place] ([address]) initial encounter Translations: [ - Blister (nonthermal) of oral cavity, initial encounter S00.522A, - Blister (nonthermal) of oral cavity, initial encounter S00.522A] Substance-rela Cannabis Chronic Active GAYLE Not Avai lable elizabeth disorders abuse, TEENA , (15838) (8 sources.) uncomplicated MD Translations: [ NICOTINE DEPENDENCE, CIGARETTES, UNCOMPL] Disorders of Chronic Chronic Active PAL APARICIO [facility] ty teeth and jaw gingivitis [address] [place] [address] (6 sources.) Translations: of [facility] [ Chronic [place] ([address]39) gingivitis, plaque induced, - Chronic gingivitis, plaque induced K05.10, Chronic gingivitis, plaque induced, - Chronic gingivitis, plaque induced K05.10] Unclassified Contact with Episodic Active CARLOTTA SHORTY Not Available (5 sources.) and (32343) (suspected) exposure to environmental tobacco smoke (acute) (chronic) Epilepsy; Epilepsy, Chronic Active CARLOTTA ORO Not Availa ble convulsions (6 unspecified, (57864) sources.) not intractable, without status epilepticus Other correction Episodic Active CARLOTTA CABRERAES [facility] Via aftercare (2 (current) use Angi sources.) of systemic Hospital - [facility] (39823) Mood disorders Mood disorder Chronic Active PAL [facility] (9 sources.) Translations: [address] [place] [address] [ Mood of [place] disorder, - [place] ([address]) Mood disorder F39, Mood disorder, - Mood disorder F39] Other Pain in left Episodic Active CARLOTTA SHORTY [facility] Via non-traumatic knee [facility] joint [facility] - disorders (1 [place] source.) ([address]) Joint Unspecified Chronic Active CARLOTTA ORO [facility] Via disorders and internal [facility] dislocations; derangement of Hospital - trauma-related left knee [place] (1 source.) ([address]4982) Past or Other Problems Problem Normalized Date Last Normalized Normalized Provider Fa cility Classification Problem(s) Recorded Problem Problem Sta tus Duration External Contact with no information no information no name no information Injury - Cut / other [place] (1 nonpowered source.) hand tool, initial encounter Other lower Cough Episodic Completed CARLOTTA ORO Not Avail able respiratory (59212) disease (4 sources.) Other lower Hyperventilati Episodic Completed GAYLE Not A vailable respiratory on BRUEGGEMANN , (22819) disease (4 MD sources.) Open wounds of Laceration Episodic Completed no name no inf ormation extremities (1 without source.) foreign body of right index finger without damage to nail, initial encounter Disorders of Other no information no information PAL [facility] teeth and jaw specified [address] [facility] (1 source.) disorders of of [place] teeth and [place] ([address]) supporting structures Translations: [ - Tooth pain K08.89] Other lower Pleurodynia Episodic Completed CARLOTTA ORO Not Av ailable respiratory (77468) disease (4 sources.) External cause Unspecified no information no information CARLOTTA SHORTY [facility] Via codes: Fall (1 fall, initial [facility] source.) encounter Hospital [facility] [place] ([address]) External Unspecified no information no information no name no information Injury - Place place in of occurrence unspecified (1 source.) [facility] residence as the place of occurrence of the external cause Procedures Procedure Normalized Procedure Procedure Result Performer Facility Date 05-02-2019 X-ray of left knee no information CARLOTTA CABRERAE [place] [facility] ([address]) Immunizations The data below is from unstructured sources No Known Immunizations No Known Immunizations No Known Immunizations No Known Immunizations No Known Immunizations Results Test Name Value Interpretation Reference Range Date Time Fa cility (Normalized) (Normalized) (Medline Reference) metabolic panel on null Sodium no information (no code) Via [facility] ([address]151) Vital Signs Vital Sign Value Interpretation Reference Date Time Care Prov ider Facility (Normalized) (Normalized) Range BMI (Body Mass 18.25 kg/m2 (no code) 15 - 25 kg/m2 04-07-2018 Cristhian APARICIO [facility]) 12:000400 [address] [facility] ([address]66) Height 190.5 cm (no code) cm 04-07-2018 PAL Ibarra [facility]munity 12:000400 [address] [facility] ([address]) Weight 66.23 kg (no code) kg 04-07-2018 PAL Ibarra [facility]munity 12:000400 [address] [place] [address] ([address]) Interventions No Information Plan of Treatment The data below is from unstructured sources Discharge Date 05/28/17 9:53pm Disposition 01 HOME, SELF-CARE Condition at Discharge Stable Instructions/Education Provided Acut e Bronchitis, Adult (DC) Pleuritic Chest Pain (DC) Forms Provided Work Release Form Prescriptions See Medication Section Referrals NO,LOCAL PHYSICIAN Order Date: Primary Care Physician Additional Instructions/Education 1. Use Tylenol and Motrin as needed for pain 2. Return to ER for any concerns 3. Antibiotics and steroids as directed 4. Follow-up with her doctor later this week Discharge Date 01/27/18 1:50pm Disposition 01 HOME, SELF-CARE Condition at Discharge Improved Instructions/Education Provided Lace ration Repair With Stitches (DC) Prescriptions See Medication Section Referrals NO,LOCAL PHYSICIAN Order Date: Primary Care Physician Additional Instructions/Education Al l discharge instructions reviewed with patient and/or family. Voiced understanding. Tylenol extra strength [id number] as directed for pain. Ibuprofen 800 mg by mouth every 8 hours as needed for pain. Elevate the right hand on pillows if needed for swelling. Ice pack for 20 and intervals as needed. Tomorrow morning you may remove the bandage, shower with antibacterial soap, pat dry, apply triple antibiotic ointment and cover with a Band-Aid. Return to the emergency department in 7 days for suture removal. Follow-up with your family practitioner for recheck as an outpatient if needed. Return to the emergency department for worsened pain, redness, fever, drainage, or any other concerns. Discharge Date 05/02/19 9:03pm Disposition 01 HOME, SELF-CARE Condition at Discharge Stable Instructions/Education Provided Inte rnal Derangement of the Knee Prescriptions See Medication Section Referrals NO,LOCAL PHYSICIAN Order Date: Primary Care Physician Additional Instructions/Education 1. Tylenol and ibuprofen for pain control 2. Call your doctor tomorrow to schedule an MRI of the knee Discharge Date 05/02/19 9:03pm Disposition 01 HOME, SELF-CARE Condition at Discharge Stable Instructions/Education Provided Inte rnal Derangement of the Knee Prescriptions See Medication Section Referrals NO,LOCAL PHYSICIAN Order Date: Primary Care Physician Additional Instructions/Education 1. Tylenol and ibuprofen for pain control 2. Call your doctor tomorrow to schedule an MRI of the knee Goals No Information Social History No Information Functional Status The data below is from unstructured sourcesNo functional status information available.No functional status information available.No functional status information available.No functional status information available.No functional status information available. Mental Status No Information Encounters Encounter Normalized Encounter Encounter Diagnosis Care Provi chelsie Organization Date Type 04-07-2018 (ACUTE) Acute Visit Blister (nonthermal) PAL MEDRANO RL (no [facility] oral cavity, phone) Corrections (no seth ne) initial encounter 05-02-2019 Emergency department no information CARLOTTA Gerber APRN [facility] no organization name - patient visit Work Phone: 05-02-2019 05-02-2019 Emergency department no information no name no organization name - patient visit 05-02-2019 01-27-2018 Emergency department no information MYCHAL MONSALVE [place] Work no organization name - patient visit Phone: 01-27-2018 11-03-2016 Emergency department no information no name no organization name - patient visit 11-03-2016 04-07-2018 Patient encounter no information no name no or ganization name 03-24-2018 Patient encounter no information no name no or ganization name 01-27-2018 Patient encounter no information no name no or ganization name 05-02-2019 Patient encounter no information no name no or ganization name procedure 05-28-2017 Patient encounter no information no name no or ganization name procedure 11-03-2016 Patient encounter no information no name no or ganization name procedure 06-02-2018 Telephone encounter Other specified PAL APARICIO (n o [facility] disorders of teeth and phone) (no phone) supporting structures 04-21-2018 Telephone encounter Unspecified mood PAL APARICIO ( no [facility] [affective] disorder phone) (no phone) Medical Equipment No Information Payers Normalized Payer Value Self-pay no information ([id number]) Advance Directives Directive Response Recor ded Date/Time Advance Directives No 8:33pm Resuscitation Status Full Code 05/28/17 8:33pm Directive Response Recor ded Date/Time Advance Directives No 1:12pm Organ Donor Yes 01/27/18 1:12pm Resuscitation Status Full Code 01/27/18 1:12pm Directive Response Recor ded Date/Time Advance Directives No 8:21pm Organ Donor Yes 05/02/19 8:21pm Resuscitation Status Full Code 05/02/19 8:21pm Discharge Instructions No hospital discharge instruction information available.No hospital discharge instruction information available.No hospital discharge instruction information available. Chief Complaint and Reason for Visit Chief Complaint Lower Extremity Reason for Visit Internal derangemen t of left knee Additional Source Comments This clinical document has been generated using [employer] software that has been certified by the Office of the National Coordinator for Health Information Technology (ONC 15.99.04.3023.Diam.31.00.0.764701) and the National Committee for Training Analyst (NCQA, as an eMeasure certified technology). FOR RECORDS PERTAINING TO PATIENTS WHO ARE OR HAVE BEEN ENROLLED IN A CHEMICAL D EPENDENCY/SUBSTANCE ABUSE PROGRAM, SOME INFORMATION MAY BE OMITTED. This clinica l summary was aggregated from multiple sources. Caution should be exercised in using it in the provision of clinical care. This summary normalizes information from multiple sources, and as a consequence, information in this document may ma terially change the coding, format and clinical context of patient data. In yee tion, data may be omitted in some cases. CLINICAL DECISIONS SHOULD BE BASED ON T HE PRIMARY CLINICAL RECORDS. [employer] provides no warranty or guara ntee of the accuracy or completeness of information in this document.The followi ng information is based on time limited clinical information UNRECOGNIZED CONTENT PROVIDED BELOW FOR UNRECOGNIZED SECTION REASON FOR VISIT longterm rxJAILJail
--- OUTSIDE RECORDS SUMMARY | 2020-01-15 16:47 | XMS REPORT ---
Author Author Pal APARICIO Organization [facility] Address [address] [place] [address] Care Team Providers Care Police Detective Name Role Phone PAL APARICIO Unavailable PROBLEMS Type Condition ICD9-CM Code AVA86-DE Code Onset Dates Condition S tatus SNOMED Code Problem Chronic gingivitis, plaque induced K05.10 Active 38326312 Problem Mood disorder F39 Active 204363 05 ALLERGIES No Known Allergies ENCOUNTERS Encounter Location Date Diagnosis [facility] [address] [facility] [id number] [place] [address] Apr, Mood disorder F39 [facility] [address] [place], [place] [id number] 57 Mar, Blister (nonthermal) of oral cavity, initial encounter S00.522A ; Chronic gingivitis, plaque induced K05.10 and Mood disorder F39 IMMUNIZATIONS No Known Immunizations SOCIAL HISTORY Never Assessed REASON FOR VISIT DETENTION PLAN OF CARE VITAL SIGNS Height 75 in 2018-04-07 Weight 146 lbs 2018-04-07 Heart Rate 90 bpm 2018-04-07 Respiratory Rate 16 2018-04-07 BMI 18.25 kg/m2 2018-04-07 Blood pressure systolic 100 mmHg 2018-04-07 Blood pressure diastolic 60 mmHg 2018-04-07 MEDICATIONS Medication Instructions Dosage Frequency Start Date End Date Duration S tatus Clindamycin HCl 300 MG Orally 4 times a day 1 capsule 6h Mar, Apr, 10 day(s) Active Paroxetine HCl 20 MG Orally Once a day 1 tablet in the morning 24h Mar, 30 day(s) Active RESULTS No Results PROCEDURES No Known procedures INSTRUCTIONS MEDICATIONS ADMINISTERED No Known Medications
--- OUTSIDE RECORDS SUMMARY | 2020-01-15 16:48 | XMS REPORT | Continuity of Care Document ---
Author Organization Unknown Address Unknown Phone Unavailable Allergies Active Description Code Type Severity Reaction Onset Reported/Identified Relationship to Patient Clinical Status Yes No Known Drug Allergies [id number] Drug Allergy Unknown N/A 11/03/2016 Yes Penicillins [id number] Drug Aller gy Unknown N/A 05/28/2017 Medications There is no data. Problems Date Dx Coded Attending Type Code Diagnosis Diagnosed By 11/03/2016 GAYLE DICKINSON MD T Ot F12.10 CANNABIS ABUSE, UNCOMPLICATED 11/03/2016 GAYLE DICKINSON MD T Ot F17.210 NICOTINE DEPENDENCE, CIGARETTES, UNCOMPL 11/03/2016 GAYLE DICKINSON MD T Ot R06.4 HYPERVENTILATION 11/03/2016 GAYLE DICKINSON MD T Ot R10.84 GENERALIZED ABDOMINAL PAIN 11/03/2016 GAYLE DICKINSON MD T Ot R11.0 NAUSEA 11/03/2016 GYALE DICKINSON MD T Ot R11.2 NAUSEA WITH VOMITING, UNSPECIFIED 11/03/2016 GAYLE DICKINSON MD T Ot R33.9 RETENTION OF URINE, UNSPECIFIED 11/05/2016 GAYLE DICKINSON MD T Ot F12.10 CANNABIS ABUSE, UNCOMPLICATED 11/05/2016 GAYLE DICKINSON MD T Ot F17.210 NICOTINE DEPENDENCE, CIGARETTES, UNCOMPL 11/05/2016 GAYLE DICKINSON MD T Ot R06.4 HYPERVENTILATION 11/05/2016 GAYLE DICKINSON MD T Ot R10.84 GENERALIZED ABDOMINAL PAIN 11/05/2016 GAYLE DICKINSON MD T Ot R11.0 NAUSEA 11/05/2016 GAYLE DICKINSON MD T Ot R11.2 NAUSEA WITH VOMITING, UNSPECIFIED 11/05/2016 GAYLE DICKINSON MD T Ot R33.9 RETENTION OF URINE, UNSPECIFIED 11/09/2016 GAYLE DICKINSON MD T Ot F12.10 CANNABIS ABUSE, UNCOMPLICATED 11/09/2016 GAYLE DICKINSON MD Ot F17.210 NICOTINE DEPENDENCE, CIGARETTES, UNCOMPL 11/09/2016 GAYLE DICKINSON MD Ot R06.4 HYPERVENTILATION 11/09/2016 GAYLE DICKINSON MD Ot R10.84 GENERALIZED ABDOMINAL PAIN 11/09/2016 AGYLE DICKINSON MD Ot R11.0 NAUSEA 11/09/2016 GAYLE DICKINSON MD Ot R11.2 NAUSEA WITH VOMITING, UNSPECIFIED 11/09/2016 GAYLE DICKINSON MD Ot R33.9 RETENTION OF URINE, UNSPECIFIED 05/28/2017 CARLOTTA ORO APRN Ot G40.909 EPILEPSY, UNSP, NOT INTRACTABLE, WITHOUT 05/28/2017 CARLOTTA ORO APRN Ot J40 BRONCHITIS, NOT SPECIFIED ACUTE OR CH 05/28/2017 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909 EPILEPSY, UNSP, NOT INTRACTABLE, WITHOUT 01/29/2018 MYCHAL BREEN Ot S61.210A LACERATION W/O FB OF R IDX FNGR W/O PHILLIP 01/29/2018 MYCHAL BREEN Ot W27.8XXA CONTACT WITH OTHER NONPOWERED HAND TOOL, 01/29/2018 MYCHAL BREEN Ot Y92.[address] IN UNSP NON-INSTITUT (PRIVATE 01/29/2018 MYCHAL BREEN Ot 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 01/29/2018 MYCHAL BREEN Ot Z88.0 ALLERGY STATUS TO PENICILLIN 05/05/2019 CARLOTTA ORO APRN Ot G40.909 EPILEPSY, UNSP, NOT INTRACTABLE, WITHOUT 05/05/2019 CARLOTTA ORO APRN Ot M23.92 UNSPECIFIED INTERNAL DERANGEMENT OF LEFT 05/05/2019 CARLOTTA ORO APRN Ot M25.562 PAIN IN LEFT KNEE 05/05/2019 CARLOTTA ORO APRN Ot W19.XXXA UNSPECIFIED FALL, INITIAL ENCOUNTER 05/05/2019 CARLOTTA ORO APRN Ot Z77.22 CNTCT W AND EXPSR TO ENVIRON TOBACCO SMO 05/05/2019 CARLOTTA ORO APRN Ot 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 Results Test Result Range Complete blood count (CBC) with automate d white blood cell (WBC) differential - 11/03/16 15:36 Blood leukocytes automated count (number/volume) 11.0 10*3/uL 4.3-11.0 Blood erythrocytes automated count (number/volume) 5.31 10*6/uL 4.35-5.85 Venous blood hemoglobin measurement (mass/volume) 16.6 g/dL 13.3-17.7 Blood hematocrit (volume fraction) 45 % 40-54 Automated erythrocyte mean corpuscular volume 85 [ foz_us] 80-99 Automated erythrocyte mean corpuscular h emoglobin (mass per erythrocyte) 31 pg 25-34 Automated erythrocyte mean corpuscular h emoglobin concentration measurement (mass/volume) 37 g/dL 32-36 Automated erythrocyte distribution width ratio 12. 4 % 10.0- 14.5 Automated blood platelet count (count/volume) 212 10*3/uL 130-400 Automated blood platelet mean volume measurement 11.4 [foz_us] 7.4-10.4 Automated blood neutrophils/100 leukocytes 78 % 42-75 Automated blood lymphocytes/100 leukocytes 14 % 12-44 Blood monocytes/100 leukocytes 8 % 0-12 Automated blood eosinophils/100 leukocytes 1 % 0-10 Automated blood basophils/100 leukocytes 0 % 0-10 Blood neutrophils automated count (number/volume) 8.6 10*3 1.8-7.8 Blood lymphocytes automated count (number/volume) 1.5 10*3 1.0-4.0 Blood monocytes automated count (number/volume) 0. 9 10*3 0.0-1.0 Automated eosinophil count 0.1 10*3/uL 0 .0-0.3 Automated blood basophil count (count/volume) 0.0 10*3/uL 0.0-0.1 Comprehensive metabolic panel - 11/03/16 15:36 Serum or plasma sodium measurement (moles/volume) 140 mmol/L 135-145 Serum or plasma potassium measurement (moles/volume) 3.9 mmol/L 3.6-5.0 Serum or plasma chloride measurement (moles/volume) 107 mmol/L 98-107 Carbon dioxide 22 mmol/L 21-32 Serum or plasma anion gap determination (moles/volume) 11 mmol/L 5-14 Serum or plasma urea nitrogen measurement (mass/volume ) 11 mg/dL 7-18 Serum or plasma creatinine measurement (mass/volume) 0.86 mg/dL 0.60-1.30 Serum or plasma urea nitrogen/creatinine mass ratio 13 NRG Serum or plasma creatinine measurement w ith calculation of estimated glomerular filtration rate > NRG Serum or plasma glucose measurement (mass/volume) 115 mg/dL 70-105 Serum or plasma calcium measurement (mass/volume) 9.6 mg/dL 8.5-10.1 Serum or plasma total bilirubin measurement (mass/volu me) 0.9 mg/dL 0.1-1.0 Serum or plasma alkaline phosphatase libby surement (enzymatic activity/volume) 60 U/L 40-136 Serum or plasma aspartate aminotransfera se measurement (enzymatic activity/volume) 17 U/L 5-34 Serum or plasma alanine aminotransferase measurement (enzymatic activity/volume) 20 U/L 0-55 Serum or plasma protein measurement (mass/volume) 6.7 g/dL 6.4-8.2 Serum or plasma albumin measurement (mass/volume) 4.6 g/dL 3.2-4.5 Magnesium - 11/03/16 15:36 Magnesium 1.8 mg/dL 1.8-2.4 Serum or plasma thyrotropin measurement by detection limit <=0.05 miu/l (units/volume) - 11/03/16 15:36 Serum or plasma thyrotropin measurement by detection limit <=0.05 miu/l (units/volume) 0.72 u[iU]/mL 0.35-4.94 Serum or plasma ethanol measurement (mas s/volume) - 11/03/16 15:36 Serum or plasma ethanol measurement (mass/volume) < mg/dL <10 Lipase - 11/03/16 15:36 Lipase 22 U/L 8-78 Influenza virus A and B antigen detectio n - 11/03/16 16:22 FLU RESULT NEGATIVE FOR INFLUENZA A AND B ANTIGENS BY IA NRG Complete urinalysis with reflex to cultu re - 11/03/16 17:58 Urine color determination YELLOW NRG Urine clarity determination SLIGHTLY CLOUDY NRG Urine pH measurement by test strip 8 5-9 Specific gravity of urine by test strip 1.015 1.016-1.022 Urine protein assay by test strip, semi-quantitative 2+ NEGATIVE Urine glucose detection by automated test strip NE GATIVE NEGATIVE Erythrocytes detection in urine sediment by light micr oscopy NEGATIVE NEGATIVE Urine ketones detection by automated test strip 3+ NEGATIVE Urine nitrite detection by test strip NEGATIVE NEGATIVE Urine total bilirubin detection by test strip NEGA TIVE NEGATIVE Urine urobilinogen measurement by automated test strip (mass/volume) 1 mg/dL NORMAL Urine leukocyte esterase detection by dipstick 1+ NEGATIVE Automated urine sediment erythrocyte cou nt by microscopy (number/high power field) NONE NRG Automated urine sediment leukocyte count by microscopy (number/high power field) [HPF] NRG Bacteria detection in urine sediment by light microsco py NONE NRG Crystals detection in urine sediment by light microsco py PRESENT NRG Casts detection in urine sediment by light microscopy NONE NRG Mucus detection in urine sediment by light microscopy SMALL NRG Complete urinalysis with reflex to culture NO NRG Amorphous sediment detection in urine sediment by ligh t microscopy FEW RACHAEL PHOSPHATE NRG Urine drug screening test - 11/03/16 17: 58 Urine phencyclidine detection by screening method NEGATIVE NEGATIVE Urine benzodiazepines detection by screening method POSITIVE NEGATIVE Urine cocaine detection NEGATIVE NEGATI VE Urine amphetamines detection by screening method N EGATIVE NEGATIVE Urine methamphetamine detection by screening method NEGATIVE NEGATIVE Urine cannabinoids detection by screening method P OSITIVE NEGATIVE Urine opiates detection by screening method NEGATI VE NEGATIVE Urine barbiturates detection NEGATIVE N EGATIVE Screening urine tricyclic antidepressants detection NEGATIVE NEGATIVE Urine methadone detection by screening method NEGA TIVE NEGATIVE Urine oxycodone detection NEGATIVE NEGA TIVE Urine propoxyphene detection NEGATIVE N EGATIVE Complete blood count (CBC) with automate d white blood cell (WBC) differential - 05/28/17 20:45 Blood leukocytes automated count (number/volume) 9.7 10*3/uL 4.3-11.0 Blood erythrocytes automated count (number/volume) 4.83 10*6/uL 4.35-5.85 Venous blood hemoglobin measurement (mass/volume) 15.0 g/dL 13.3-17.7 Blood hematocrit (volume fraction) 42 % 40-54 Automated erythrocyte mean corpuscular volume 86 [ foz_us] 80-99 Automated erythrocyte mean corpuscular h emoglobin (mass per erythrocyte) 31 pg 25-34 Automated erythrocyte mean corpuscular h emoglobin concentration measurement (mass/volume) 36 g/dL 32-36 Automated erythrocyte distribution width ratio 12. 6 % 10.0- 14.5 Automated blood platelet count (count/volume) 203 10*3/uL 130-400 Automated blood platelet mean volume measurement 10.7 [foz_us] 7.4-10.4 Automated blood neutrophils/100 leukocytes 71 % 42-75 Automated blood lymphocytes/100 leukocytes 15 % 12-44 Blood monocytes/100 leukocytes 14 % 0-12 Automated blood eosinophils/100 leukocytes 1 % 0-10 Automated blood basophils/100 leukocytes 0 % 0-10 Blood neutrophils automated count (number/volume) 6.9 10*3 1.8-7.8 Blood lymphocytes automated count (number/volume) 1.5 10*3 1.0-4.0 Blood monocytes automated count (number/volume) 1. 3 10*3 0.0-1.0 Automated eosinophil count 0.1 10*3/uL 0 .0-0.3 Automated blood basophil count (count/volume) 0.0 10*3/uL 0.0-0.1 Encounters ACCT No. Visit Date/Time Discharge Status Pt. Type Provider Facility Loc./Unit Complaint [id number] 05/02/2019 20:15:00 019 21:03:00 DIS Outpatient CARLOTTA ORO APRN [facility] LT KNEE PAIN [id number] 01/27/2018 12:48:00 018 13:50:00 DIS Outpatient MYCHAL BREEN [facility] RIGHT INDEX FIN MONIKA LAC [id number] 05/28/2017 20:33:00 017 21:53:00 DIS Emergency CARLOTTA ORO APRN [facility] RT SIDED CHEST PAIN,COU GH,SOA [id number] 11/03/2016 15:38:00 017 18:54:00 DIS Emergency TEENA PAUL, GAYLE Aleman [facility] HEADACHE/N/V/FE RAINE
--- NOTE | 2020-01-15 17:11 | ED EENT ---
History of Present Illness General Chief Complaint: Dental Problems/Pain Stated Complaint: DENTAL PAIN Nursing Triage Note: THE PT IS AMBULATORY TO THE ROOM WITHOUT DIFFICULTY. NO DISTRESS IS SEEN ON ARRIVAL. LOC IS NORMAL FOR THE PT. THE PT C/O OF TOOTH PAIN. History of Present Illness Date Seen by Provider: January 15, 2020 Time Seen by Provider: 16:55 Initial Comments 24-year-old male presents for left upper molar pain. He states started eating a hamburger when he felt two upper left teeth crack. He had seen a dentist in the past to have these decayed teeth removed. His dentist is in [place], [place] and can't get him an appt until March 2020. 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 Timing/Duration: yesterday Location: dental Prearrival Treatment: over the counter meds Associated Symptoms: denies symptoms Allergies and Home Medications Allergies Coded Allergies: Penicillins (Verified Allergy, Unknown, 05/28/17) Home Medications Azithromycin 250 Mg Tablet, 250 MG PO DAILY Prescribed by: CARLOTTA ORO on 05/28/172147 Prednisone 20 Mg Tab, 40 MG PO DAILY Prescribed by: CARLOTTA ORO on 05/28/172147 Patient Home Medication List Home Medication List Reviewed: Yes Review of Systems Review of Systems Constitutional: no symptoms reported, see HPI Mouth: see HPI, pain (Left upper molar) All Other Systems Reviewed Negative Unless Noted: Yes Past Dcadnsn-Mvejsq-Jyrqcj Hx Past Med/Social Hx: Reviewed Nursing Past Med/Soc Hx Patient Social History Drug of Choice: Marijuana Type Used: Cigarettes 2nd Hand Smoke Exposure: Yes Recent Foreign Travel: No Contact w/Someone Who Travel: No Recent Infectious Disease Expo: No Recent Hopitalizations: No Immunizations Up To Date Tetanus Booster (TDap): Less than 5yrs Seasonal Allergies Seasonal Allergies: Yes Past Medical History Surgeries: No Respiratory: No Cardiac: No Neurological: Yes Seizure Disorder Genitourinary: No Gastrointestinal: No Musculoskeletal: No Endocrine: No HEENT: No Cancer: No Psychosocial: No Integumentary: No Blood Disorders: No Family Medical History No Pertinent Family Hx Physical Exam Vital Signs Vital Signs - First Documented 01/15/20 17:03 Temp 37.1 Pulse 76 Resp 16 B/P (MAP) 118/70 (86) Height, Weight, BMI Height: 6'3.00" Weight: 180lbs. oz. 81.256538gr; 25.00 BMI Method:Stated General Appearance: WD/WN Nose: normal inspection; No discharge Mouth/Throat: pharynx normal, dental tenderness (Left upper molar), other (2 posterior molars with marked decay and part of enamal missing. ) Neck: non-tender, full range of motion, supple, normal inspection Cardiovascular: normal peripheral pulses, regular rate, rhythm Respiratory: chest non-tender, lungs clear, normal breath sounds Neurologic/Psychiatric: no motor/sensory deficits, alert, normal mood/affect, oriented x 3 Procedures/Interventions Suture Size: 4-0 Progress/Results/Core Measures Results/Orders Vital Signs/I&O 01/15/20 17:03 Temp 37.1 Pulse 76 Resp 16 B/P (MAP) 118/70 (86) Blood Pressure Mean: 86 Departure Impression Primary Impression: Fractured tooth Qualified Codes: S02.5XXA - Fracture of tooth (traumatic), initial encounter for closed fracture Disposition: HOME, SELF-CARE Condition: Improved Departure-Patient Inst. Decision time for Depature: 17:08 Referrals: NO,LOCAL PHYSICIAN (PCP/Family) Primary Care Physician Patient Instructions: Fractured Tooth (DC), Tooth Decay, Adult (DC), Dental Pain (DC) Add. Discharge Instructions: Warm salt water gargles. Call to see dentist on Friday, may want to try [facility]. Warm moist compressions to left cheek. Tylenol 650 mg alternating with Ibuprofen 600 mg every 4 hours for pain. Soft food, avoid hot or cold Apply dental pain ointments, as needed. Return to Emergency Dept for new, urgent health care needs. All discharge instructions reviewed with patient and/or family. Voiced understanding. SESAR DENSON January 15, 2020 17:11
[2020-01-15 17:15] VITALS: BP 118/70
== END 2020-01-15 17:16 | disposition home or self-care (01) ==
LOC: EDUNIT# 16:43 → ER 16:44
DX: S02.5XXA Fracture of tooth (traumatic), initial encounter for closed fracture (principal); Z88.0 Allergy status to penicillin; Z79.52 Long term (current) use of systemic steroids; Z77.22 Contact with and (suspected) exposure to environmental tobacco smoke (acute) (chronic); X58.XXXA Exposure to other specified factors, initial encounter
CPT/HCPCS: 99282

== ENCOUNTER 2020-06-21 11:35 | Emergency (ER) | payer OTHER ==
[~2020-06-21] VITALS: Ht 190 cm; Wt 81.0 kg
[2020-06-21 11:50] VITALS: BP 134/92
[2020-06-21] MEDS ORDERED: IBUPROFEN 800 MG (MOTRIN) TAB PO STA (11:57)
--- NOTE | 2020-06-21 12:10 | ED Lower Extremity ---
General Chief Complaint: Lower Extremity Stated Complaint: FOOT PAIN Nursing Triage Note: AMBULATED TO ROOM 08 WITH COMPLAINTS OF LEFT FOOT PAIN AFTER STEPPING OFF PORCH WRONG LAST NIGHT. Nursing Sepsis Screen: No Definite Risk History of Present Illness Date Seen by Provider: Jun 21, 2020 Time Seen by Provider: 11:50 Initial Comments 25-year-old male reports stepping off his porch and twisting his foot last evening. He is complaining of pain in his left heel. He denies any previous injuries to his left heel he does report spraining his left ankle in the past but nothing recently. He has not taken any medication for his symptoms and does not have a primary care provider. He is able to ambulate but is spending the majority of the weight on his left toes. Onset: yesterday Pain/Injury Location: left heel Method of Injury: fell Allergies and Home Medications Allergies Coded Allergies: Penicillins (Verified Allergy, Unknown, 05/28/17) Home Medications No Active Prescriptions or Reported Meds Patient Home Medication List Home Medication List Reviewed: Yes Review of Systems Constitutional: no symptoms reported, see HPI Musculoskeletal: see HPI, joint pain (left heel) All Other Systems Reviewed Negative Unless Noted: Yes Past Ckmycri-Xooxni-Upmnrq Hx Past Med/Social Hx: Reviewed Nursing Past Med/Soc Hx Patient Social History Alcohol Use: Occasionally Uses Recreational Drug Use: Yes Drug of Choice: POT Smoking Status: Current Everyday Smoker Type Used: Cigarettes 2nd Hand Smoke Exposure: Yes Recent Foreign Travel: No Contact w/Someone Who Travel: No Recent Infectious Disease Expo: No Recent Hopitalizations: No Immunizations Up To Date Tetanus Booster (TDap): Less than 5yrs Seasonal Allergies Seasonal Allergies: Yes Past Medical History Surgeries: No Respiratory: No Cardiac: No Neurological: Yes Seizure Disorder Genitourinary: No Gastrointestinal: No Musculoskeletal: No Endocrine: No HEENT: No Cancer: No Psychosocial: No Integumentary: No Blood Disorders: No Family Medical History No Pertinent Family Hx Physical Exam Vital Signs Vital Signs - First Documented 06/21/20 11:50 Temp 36.9 Pulse 85 Resp 16 B/P (MAP) 134/92 (106) Pulse Ox 97 O2 Delivery Room Air Capillary Refill : Less Than 3 Seconds Height, Weight, BMI Height: 6'3.00" Weight: 180lbs. oz. 81.689531ca; 22.00 BMI Method:Stated General Appearance: WD/WN, no apparent distress Cardiovascular: normal peripheral pulses, regular rate, rhythm Respiratory: chest non-tender, lungs clear, normal breath sounds Feet: left foot normal inspection, left foot normal range of motion, left foot pain (left heel on the plantar surface and medial aspect) Neurologic/Tendon: normal sensation, normal motor functions, normal tendon functions Neurologic/Psychiatric: no motor/sensory deficits, alert, normal mood/affect, oriented x 3 Skin: normal color, warm/dry Procedures/Interventions Suture Size: 4-0 Progress/Results/Core Measures Results/Orders My Orders Orders - SESAR DENSON Foot, Left, 3 Views (06/21/20 11:57) Ibuprofen Tablet (Motrin Tablet) (06/21/20 11:57) Vital Signs/I&O 06/21/20 11:50 Temp 36.9 Pulse 85 Resp 16 B/P (MAP) 134/92 (106) Pulse Ox 97 O2 Delivery Room Air Blood Pressure Mean: 106 Diagnostic Imaging Diagonstic Imaging: Xray Comments NAME: JAREKPAL Norwood [facility] REC#: [id number] PT STATUS: REG ER : 1995 PHYSICIAN: SESAR DENSON ADMIT DATE: 06/21/20/ER Draft Date of Exam:06/21/20 FOOT, LEFT, 3 VIEWS INDICATION: Left foot pain. Time of exam 12:17 PM 3 views of the left foot were obtained. Metatarsals and phalanges are intact. Midfoot and hindfoot are unremarkable. No fractures are seen. IMPRESSION: No acute bony abnormality is detected. Dictated on workstation # [id number] Dict: 06/21/20 1215 Trans: 06/21/20 1220 [facility] [id number] Interpreted by: DARRIUS NORRIS MD Electronically signed by: Reviewed: Reviewed by Me Departure Impression Primary Impression: Pain of left heel Disposition: 01 HOME, SELF-CARE Condition: Improved Departure-Patient Inst. Decision time for Depature: 12:15 Referrals: NO,LOCAL PHYSICIAN (PCP/Family) Primary Care Physician Patient Instructions: Heel Pain (Caused by Plantar Fasciitis) (DC) Add. Discharge Instructions: Ice and elevate left heel. Alternate between Tylenol 650 mg and ibuprofen 600 mg every 4 hours for pain or swelling. Establish care with a primary care provider at [facility]. Progress activity as tolerated. Return to the emergency department for new, life-threatening health care needs. For non-emergent health care, there are several walk in car and urgent cars in [facility]. All discharge instructions reviewed with patient and/or family. Voiced understanding. Scripts No Active Prescriptions or Reported Meds SESAR DENSON Jun 21, 2020 12:10
--- NOTE | 2020-06-21 12:21 | Diagnostic Imaging Report ---
INDICATION: Left foot pain. Time of exam 12:17 PM 3 views of the left foot were obtained. Metatarsals and phalanges are intact. Midfoot and hindfoot are unremarkable. No fractures are seen. IMPRESSION: No acute bony abnormality is detected. Dictated by: Dictated on workstation # [id number]
== END 2020-06-21 12:36 | disposition home or self-care (01) ==
LOC: EDUNIT# 11:35 → ER 11:36
DX: M79.672 Pain in left foot (principal); F17.210 Nicotine dependence, cigarettes, uncomplicated; Z88.0 Allergy status to penicillin
CPT/HCPCS: 73630

== ENCOUNTER 2021-02-09 16:10 | Emergency (ER) | payer OTHER ==
[~2021-02-09] VITALS: Ht 188 cm; Wt 81.6 kg
[2021-02-09 16:19] VITALS: BP 124/80
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
== END 2021-02-09 16:30 | disposition home or self-care (01) ==
LOC: EDUNIT# 16:10 → ER 16:12
DX: S05.11XA Contusion of eyeball and orbital tissues, right eye, initial encounter (principal); Z77.22 Contact with and (suspected) exposure to environmental tobacco smoke (acute) (chronic); Y04.8XXA Assault by other bodily force, initial encounter
CPT/HCPCS: 99283